=== PATIENT | female | born 1980 | race Hispanic/Latino ===

== ENCOUNTER 2019-04-24 19:26 | Emergency (ER) | payer SELFPAY ==
[2019-04-24 19:38] VITALS: BP 107/69; PULSE 93; RESP 18; TEMP 38.7; O2SAT 100
[2019-04-24 19:48] VITALS: TEMP 38.3
[2019-04-24] MEDS: IBUPROFEN 400 MG TABLET 800 MG PO (19:48)
[2019-04-24 19:49] VITALS: TEMP 38.3
[2019-04-24] MEDS: ACETAMINOPHEN 325 MG TABLET 975 MG PO (19:49)
--- NOTE | 2019-04-24 20:24 | ED.FEVER ---
HPI - Fever General Chief Complaint: Fever Stated Complaint: Throat/ear pain Time Seen by Provider: 04/24/19 20:09 Source: patient Mode of arrival: ambulatory Limitations: language barrier History of Present Illness HPI Narrative: Patient is a 39-year-old female who presents with sore throat ongoing for last 2 days. No one else is sick at home. No difficulty breathing or swallowing. Her strep is positive. She is currently afebrile in the ED. She does be [place] but also some Macedonian. MD complaint: fever Related Data Previous Rx's Medication Instructions Recorded amoxicillin 500 mg PO BID 7 Days #14 cap 04/24/19 Allergies Allergy/AdvReac Type Severity Reaction Status Date / Time No Known Drug Allergies Allergy Verified 04/24/19 19:44 Review of Systems Review of Systems ROS Unobtainable: All systems reviewed & are unremarkable except as noted in HPI and below Constitutional Reports body ache(s) and Reports fever(s) Eyes Denies change in vision, Denies eye discharge, Denies irritation and Denies loss of vision ENT Ears, Nose, Mouth, and Throat: Reports as per HPI and Reports sore throat Cardiovascular Denies chest pain Respiratory Denies cough Gastrointestinal Gastrointestinal: Denies nausea and Denies vomiting Musculoskeletal Denies back pain, Denies muscle weakness, Denies numbness and Denies tingling Integumentary/Breasts Denies pruritus, Denies erythema, Denies rash and Denies wounds Neurologic Denies loss of vision, Denies numbness and Denies tingling PFSH Medical History Patient denies significant medical history (Acute) Social History Smoking Status: Former smoker Social History Smoking Status: Former smoker Exam Initial Vital Signs Initial Vital Signs: Vital Signs Temperature 101.7 F H 04/24/19 19:38 Pulse Rate 93 H 04/24/19 19:38 Respiratory Rate 18 04/24/19 19:38 Blood Pressure 107/69 04/24/19 19:38 Pulse Oximetry 100 04/24/19 19:38 GENERAL: Well-appearing, well-nourished and in no acute distress. HEENT: Head atraumatic,EOMI, pupils reactive, face symmetric, moist mucous membranes, know many he will sign PHARYNX: Mild erythema no exudate no uvular swelling or deviation managing secretions CARDIOVASCULAR: Regular rate and rhythm without murmurs, rubs or gallops. RESPIRATORY: Breath sounds equal bilaterally, no wheezes rales or rhonchi. ABDOMEN: Soft, nontender. Normoactive bowel sounds all 4 quadrants. No guarding or rebound. EXTREMITIES: Normal range of motion, no clubbing or edema. Neurovascularly intact NEUROLOGICAL: Alert and oriented x4.Normal gait and speech. SKIN: Warm, dry, no laceration, no petechiae, no rashes or lesions. Course Orders Ordered: ED Orders 04/24/19 20:27 Urine Microscopic Stat Discontinued Medications Acetaminophen (Tylenol) 975 mg PO NOW ONE Stop: 04/24/19 19:46 Last Admin: 04/24/19 19:49 Dose: 975 mg Amoxicillin ( Trimox 250mg Prepack) 1 bottle MISC SEEINSTR ONE Stop: 04/24/19 20:34 Last Admin: 04/24/19 20:42 Dose: 1 bottle Ibuprofen (Advil) 800 mg PO NOW ONE Stop: 04/24/19 19:46 Last Admin: 04/24/19 19:48 Dose: 800 mg Vital Signs - 8 hr 04/24/19 19:38 04/24/19 19:48 04/24/19 19:49 Temperature 101.7 F H 101 F H 101 F H Pulse Rate 93 H Respiratory Rate 18 Blood Pressure 107/69 Pulse Oximetry 100 04/24/19 20:48 Temperature 97.9 F Pulse Rate 85 Respiratory Rate 18 Blood Pressure 126/87 Pulse Oximetry 97 MDM - Fever Lab Data Attestation: I reviewed the patient's lab results. Lab Results 04/24/19 Range/Units 20:27 Urine RBC 0-1/hpf (0-5/HPF) Urine WBC 0-1/hpf (0-5/HPF) Ur Squamous Epith Cells 0-1 /hpf (0-5/HPF) Urine Bacteria None seen (None) Ur Culture Indicated? Cult not indicated Point of Care Testing Rapid Strep A Positive Urine Dip Bedside Urine Glucose Negative Bedside Urine Bilirubin - Negative Bedside Urine Ketone - Negative Urine Specific [place] 1.015 Bedside Urine Occult Blood +/- Bedside Urine pH 7.0 Bedside Urine Protein +/- 15 Bedside Urine Urobilinogen +/- 1mg Bedside Urine Nitrite - Negative Bedside Urine Leukocytes - Negative Esterase Discharge Plan Departure Patient Disposition: Home Clinical Impression: Strep pharyngitis Discharge Date/Time: 04/24/19 20:50 Interventions: ED Discharge Assessment Last Done: 04/24/19 20:48 Instructions: Strep Throat Activity Restrictions/Additional Instructions: *You have been diagnosed with strep throat *What to do: Increase fluids as tolerated *Continue to take medications as directed Amoxicllin 500 mg twice a day (1x2x7) *Follow up with your primary care provider in 2-3 days *Return to ER if you should have inability to swallow, decreased oral intake, difficulty breathing, not able to manage secretions or any new, worsening or concerning symptoms Prescriptions: New amoxicillin 500 mg capsule 500 mg PO BID 7 Days Qty: 14 RF: 0
[2019-04-24 20:29] LABS: Bacteria Urine None Seen
[2019-04-24 20:36] LABS: Culture Indicated Urine Cult Not Indicated; RBC Urine 0-1/HPF (0-5/HPF); Squamous Epithelial Cell Urine 0-1 /HPF (0-5/HPF); WBC Urine 0-1/HPF (0-5/HPF)
[2019-04-24] MEDS: AMOXICILLIN 250 MG PREPACK 1 BOTTLE MISC (20:42)
[2019-04-24 20:48] VITALS: BP 126/87; PULSE 85; RESP 18; TEMP 36.6; O2SAT 97
== END 2019-04-24 20:50 | disposition home or self-care (01) ==
LOC: ED 20:51
PROVIDERS: Emergency Provider Emergency Medicine
DX: J02.0 Streptococcal pharyngitis (principal)
CPT/HCPCS: 81003; 81015; 87880; 99283

== ENCOUNTER 2020-05-01 20:55 | Emergency (ER) | payer SELFPAY ==
[2020-05-01 21:03] VITALS: BP 105/51; PULSE 78; RESP 15; TEMP 36.6; O2SAT 99; BMI 29.3
[2020-05-01 22:09] LABS: RBC Urine None Seen (0-5/HPF)
[2020-05-01 22:16] LABS: Bacteria Urine Moderate (10-30); Culture Indicated Urine Specimen Cultured; Squamous Epithelial Cell Urine 0-1 /HPF (0-5/HPF); WBC Urine 5-10/HPF (0-5/HPF)
--- NOTE | 2020-05-02 00:52 | ED_ITS ---
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 Presents with greater than 1 month of multiple arthralgias. She describes pain in the joints of both hands knees shoulders elbows, occasionally with swelling and she has noticed intermittent increased lower extremity edema. She has not noticed any rashes, fevers, chills, cough. No vomiting or diarrhea. She notes a slight weight increase recently and describes headaches at night time. He does not have any night sweats and is not complaining of significant adenopathy. No significant family history for arthralgias. She is followed by Sanju Sharp and apparently has been seen by tiana with blood work and x-rays done with follow-up appointment scheduled for May 06 to review all of these. She comes to the emergency department this evening because the arthralgia pain is bothering her too much to continue. Related Data Previous Rx's Medication Instructions Recorded naproxen 500 mg PO BID #60 tab 05/02/20 prednisone 40 mg PO DAILY #8 tab 05/02/20 Allergies Allergy/AdvReac Type Severity Reaction Status Date / Time No Known Drug Allergies Allergy Verified 05/01/20 21:03 Review of Systems Review of Systems Narrative: Remainder of review of systems including constitutional, ENT, cardiovascular, respiratory, GI, , musculoskeletal, skin, neurologic and psychiatric systems reviewed and are unremarkable except as noted in HPI. Patient History Medical History Patient denies significant medical history (Acute) Social History Smoking Status: Former smoker Smoking Status: Former smoker alcohol intake frequency: holidays/special occasions only Substance Use Type: does not use Exam Narrative Exam Narrative: General: Alert appropriate in no acute distress Respiratory: Able to speak in full sentences, no obvious respiratory distress Skin: No obvious rashes, warm and dry Neurologic: Grossly intact no obvious asymmetries or abnormalities Psych, appropriate insight and affect, cooperative Extremities: No obvious active synovitis, rashes or edema of extremities. She has full range of motion of all joints in the hands wrists elbows shoulders hips knees and ankles bilaterally Initial Vital Signs Initial Vital Signs: Vital Signs Temperature 97.9 F 05/01/20 21:03 Pulse Rate 78 05/01/20 21:03 Respiratory Rate 15 05/01/20 21:03 Blood Pressure 105/51 L 05/01/20 21:03 Pulse Oximetry 99 05/01/20 21:03 Course Orders Ordered: ED Orders 05/01/20 21:30 Urine Culture Stat Urine Microscopic Stat Discontinued Medications Oxycodone/Acetaminophen (Percocet 5/325) 1 tab PO NOW ONE Stop: 05/02/20 01:15 Last Admin: 05/02/20 01:28 Dose: 1 tab Documented by: BENIGNO Oxycodone/Acetaminophen (Endocet 5/325 Prepack) 1 bottle MISC SEEINSTR ONE Stop: 05/02/20 01:15 Last Admin: 05/02/20 01:29 Dose: 1 bottle Documented by: BENIGNO Prednisone (Deltasone) 60 mg PO NOW ONE Stop: 05/02/20 01:15 Last Admin: 05/02/20 01:29 Dose: 60 mg Documented by: BENIGNO Vital Signs Vital signs: Vital Signs - 8 hr 05/01/20 21:03 05/02/20 01:37 Temperature 97.9 F Pulse Rate 78 61 Respiratory Rate 15 17 Blood Pressure 105/51 L 110/68 Pulse Oximetry 99 100 MDM - Extremity (Nontraumatic) Lab Data Labs: Lab Results 05/01/20 Range/Units 21:30 Urine RBC None seen (0-5/HPF) Urine WBC 5-10/hpf H (0-5/HPF) Ur Squamous Epith Cells 0-1 /hpf (0-5/HPF) Urine Bacteria Moderate (10-30) H (None) Ur Culture Indicated? Specimen cultured Point of Care Testing Test Results Negative Urine Dip Bedside Urine Glucose Negative Bedside Urine Bilirubin - Negative Bedside Urine Ketone - Negative Urine Specific [place] 1.010 Bedside Urine Occult Blood - Negative Bedside Urine pH 6.0 Bedside Urine Protein - Negative Bedside Urine Urobilinogen - Negative Bedside Urine Nitrite - Negative Bedside Urine Leukocytes +++ 500 Esterase MDM Narrative Medical decision making narrative: as patient has already initiated with sounds like a fairly thorough workup through her primary care physician will opt to simply treat symptoms of an inflammatory arthritis for pain at this time. Encouraged her to follow-up regarding labs and x-rays that have already been done. Will place her on a brief course of prednisone and follow that with david Post for inflammatory control. She is given a prepack of Percocet to use for severe pain if needed. Patient is safe for home discharge Discharge Plan Departure Patient Disposition: Home Clinical Impression: Arthritis Discharge Date/Time: 05/02/20 01:45 Instructions: DI for Rheumatoid Arthritis -- Child, DI for Arthritis Activity Restrictions/Additional Instructions: keep your appointment with your doctor on may 06 take prednisone 40mg a day for 4 more days to help with severe joint pain take 1 percoset every 8 hours for severe pain take 1 naproxen morning and night to help control the pain overall. You can continue this one until your doctor has other suggestions for you Good luck! acuda a gray zee con gray m?dico el 3 de kevin tome 40 mg de prednisona al d?a estelita 4 d?as m?s para ayudar con el dolor art icular intenso tome 1 percoset cada 8 horas para el dolor intenso tome 1 naproxeno ma?nisha y noche para ayudar a controlar el dolor en general. Puede continuar con jana hasta que gray m?dico tenga otras sugerencias para usted. ?[place] suerte! Prescriptions: New prednisone 20 mg tablet 40 mg PO DAILY Qty: 8 RF: 0 naproxen 500 mg tablet 500 mg PO BID Qty: 60 RF: 0
[2020-05-02] MEDS: OXYCODONE/ACETAMINOPHEN 5/325 TABLET 1 TAB PO (01:28)
[2020-05-02] MEDS: predniSONE 20 MG TABLET 60 MG PO (01:29)
[2020-05-02] MEDS: OXYCODONE/APAP 5/325 PREPACK 1 BOTTLE MISC (01:29)
[2020-05-02 01:37] VITALS: BP 110/68; PULSE 61; RESP 17; O2SAT 100
== END 2020-05-02 01:45 | disposition home or self-care (01) ==
PROVIDERS: Emergency Provider Emergency Medicine
DX: M19.90 Unspecified osteoarthritis, unspecified site (principal)
CPT/HCPCS: 81003; 81015; 81025; 87086; 99283

== ENCOUNTER 2020-05-08 20:55 | Emergency (ER) | payer SELFPAY ==
[2020-05-08] VITALS (8 sets, daily range): BP systolic 98–135; BP diastolic 54–82; PULSE 71–87; RESP 16; TEMP 36.9; O2SAT 97–100; BMI 31.6
--- NOTE | 2020-05-08 22:00 | ED.ABDPAIN ---
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 She did take some Pepto-Bismol and the diarrhea has resolved. There is still some minor nausea but she is not interested in additional medication. Her main reason for reporting to the emergency room this evening is concern that these symptoms represent coronavirus and she is requesting testing she does not have any known [place] exposures. No fevers, no cough.. Related Data Previous Rx's Medication Instructions Recorded naproxen 500 mg PO BID #60 tab 05/02/20 prednisone 40 mg PO DAILY #8 tab 05/02/20 Allergies Allergy/AdvReac Type Severity Reaction Status Date / Time No Known Drug Allergies Allergy Verified 05/01/20 21:03 Review of Systems Review of Systems Narrative: Remainder of review of systems including constitutional, ENT, cardiovascular, respiratory, GI, , musculoskeletal, skin, neurologic and psychiatric systems reviewed and are unremarkable except as noted in HPI. Patient History Medical History Patient denies significant medical history (Acute) Social History Smoking Status: Former smoker Smoking Status: Former smoker alcohol intake frequency: holidays/special occasions only Substance Use Type: does not use Exam Narrative Exam Narrative: General: Alert appropriate in no acute distress Respiratory: Able to speak in full sentences, no obvious respiratory distress Chest: Lungs are clear to auscultation, no rhonchi, rales Cardiac: Regular rate and rhythm, no murmurs Skin: No obvious rashes, warm and dry Neurologic: Grossly intact no obvious asymmetries or abnormalities Psych, appropriate insight and affect, cooperative Initial Vital Signs Initial Vital Signs: Vital Signs Temperature 98.5 F 05/08/20 21:07 Pulse Rate 85 05/08/20 21:07 Respiratory Rate 16 05/08/20 21:07 Blood Pressure 106/68 05/08/20 21:07 Pulse Oximetry 97 05/08/20 21:07 Course Orders Ordered: ED Orders 05/08/20 21:49 Complete Blood Count AUTO DIFF Stat Comprehensive Metabolic Panel Stat Lipase Stat Sodium Chloride (Normal Saline 0.9%) 1,000 mls @ 1,000 mls/hr IV BOLUS ONE Stop: 05/08/20 23:02 Last Admin: 05/08/20 22:31 Dose: 1,000 mls/hr Documented by: REBEKAH Discontinued Medications Ondansetron HCl (Zofran) 4 mg IV NOW ONE Stop: 05/08/20 22:04 Last Admin: 05/08/20 22:30 Dose: 4 mg Documented by: REBEKAH Vital Signs Vital signs: Vital Signs - 8 hr 05/08/20 21:07 05/08/20 21:23 05/08/20 21:24 Temperature 98.5 F Pulse Rate 85 72 72 Respiratory Rate 16 Blood Pressure 106/68 109/54 L Pulse Oximetry 97 100 97 05/08/20 21:30 05/08/20 21:58 05/08/20 22:00 Temperature Pulse Rate 72 74 87 Respiratory Rate Blood Pressure 110/61 98/60 135/82 Pulse Oximetry 100 100 99 05/08/20 22:30 05/08/20 22:31 Temperature Pulse Rate 71 75 Respiratory Rate Blood Pressure 99/54 L Pulse Oximetry 99 98 MDM - Abdominal Pain Medical Records Attestation: I reviewed the patient's medical records. Lab Data Result diagrams: 05/08/20 21:49 05/08/20 21:49 Labs: Lab Results 05/08/20 05/08/20 Range/Units 21:49 21:49 WBC 9.9 (4.5-11.0) X10^3/uL RBC 4.09 (4.0-5.2) X10^6/uL Hgb 12.1 (12.0-16.0) g/dL Hct 36.8 (36-46) % MCV 90.2 (80-100) fL MCH 29.6 (26-34) PG MCHC 32.8 (30-36) % RDW 13.6 (11.6-14.8) % Plt Count 225 (150-400) X10^3/uL Neut % (Auto) 64.7 (50-75) % Lymph % (Auto) 26.8 (25-40) % [place] % (Auto) 6.1 (3-14) % Eos % (Auto) 2.0 (2-4) % Baso % (Auto) 0.4 (0-2) % Neut # (Auto) 6400 (1990-0081) /uL Lymph # (Auto) 2700 (3816-2978) /uL [place] # (Auto) 600 (0-900) /uL Eos # (Auto) 200 (0-450) /uL Baso # (Auto) 0 (0-100) /uL Sodium 137 (137-145) mmol/L Potassium 3.8 (3.4-5.1) mmol/L Chloride 102 (98-107) mmol/L Carbon Dioxide 27 (22-32) mmol/L BUN 15 (7-17) mg/dL Creatinine 0.70 (0.52-1.04) mg/dL Estimated GFR > 60.0 (>60) mL/min BUN/Creatinine Ratio 21.4 (6-22) Glucose 95 (70-100) mg/dL Calcium 9.4 (8.4-10.2) mg/dL Total Bilirubin 0.5 (0.2-1.3) mg/dL AST 19 (14-36) IU/L ALT 21 (<35) IU/L Alkaline Phosphatase 56 (38-126) U/L Total Protein 7.2 (6.3-8.2) g/dL Albumin 4.2 (3.5-5.0) g/dL Globulin 3.0 (1.7-4.1) g/dL Albumin/Globulin Ratio 1.4 (1.0-2.8) Lipase 214 (23-300) U/L Point of care testing: Point of Care Testing Test Results Negative Urine Dip Bedside Urine Glucose Negative Bedside Urine Bilirubin - Negative Bedside Urine Ketone - Negative Urine Specific [place] 1.010 Bedside Urine Occult Blood - Negative Bedside Urine pH 6.0 Bedside Urine Protein - Negative Bedside Urine Urobilinogen - Negative Bedside Urine Nitrite - Negative Bedside Urine Leukocytes - Negative Esterase MDM Narrative Medical decision making narrative: Minor GI distress today with no significant fevers and no significant exposures. She is concerned with coronavirus. Testing is done. Safe for home discharge Discharge Plan Departure Patient Disposition: Home Clinical Impression: Nausea vomiting and diarrhea Instructions: Diarrhea, Nausea and Vomiting-Adult Activity Restrictions/Additional Instructions: You will receive a call with the results of your coronavirus test I hope you feel better Recibir? ness llamada con los resultados de gray prueba de coronavirus. Espero que se sienta mejor Prescriptions: No Action prednisone 20 mg tablet 40 mg PO DAILY Qty: 8 RF: 0 naproxen 500 mg tablet 500 mg PO BID Qty: 60 RF: 0
[2020-05-08 22:05] LABS: Add Manual Diff / Slide Review NO; Basophils Absolute Auto 0 /uL (0-100); Basophils Percent Auto 0.4 % (0-2); Eosinophils Absolute Auto 200 /uL (0-450); Hematocrit 36.8 % (36-46); Hemoglobin 12.1 g/dL (12.0-16.0); Lymphocytes Absolute Auto 2700 /uL (1100-4500); Lymphocytes Percent Auto 26.8 % (25-40); Mean Corpuscular HGB Conc 32.8 % (30-36); Mean Corpuscular Hemoglobin 29.6 PG (26-34); Mean Corpuscular Volume 90.2 fL (80-100); Monocytes Absolute Auto 600 /uL (0-900); Monocytes Percent Auto 6.1 % (3-14); Neutrophils Absolute Auto 6400 /uL (1500-7000); Neutrophils Percent Auto 64.7 % (50-75); Platelet Count 225 X10^3/uL (150-400); Red Blood Cell Count 4.09 X10^6/uL (4.0-5.2); Red Cell Distribution Width 13.6 % (11.6-14.8); White Blood Cell Count 9.9 X10^3/uL (4.5-11.0)
[2020-05-08 22:11] LABS: Alanine Aminotransferase 21 IU/L (<35); Albumin 4.2 g/dL (3.5-5.0); Albumin Globulin Ratio 1.4 (1.0-2.8); Alkaline Phosphatase 56 U/L (38-126); Aspartate Aminotransferase 19 IU/L (14-36); BUN Creatinine Ratio 21.4 (6-22); Bilirubin Total 0.5 mg/dL (0.2-1.3); Blood Urea Nitrogen 15 mg/dL (7-17); Calcium 9.4 mg/dL (8.4-10.2); Carbon Dioxide 27 mmol/L (22-32); Chloride 102 mmol/L (98-107); Estimated Glomerular Filt Rate > 60.0 mL/min (>60); Glucose 95 mg/dL (70-100); HEMOLYSIS < 15 (0-50); Lipase 214 U/L (23-300); Potassium 3.8 mmol/L (3.4-5.1); Sodium 137 mmol/L (137-145); Total Protein 7.2 g/dL (6.3-8.2)
[2020-05-08] MEDS: ONDANSETRON 4 MG/2 ML INJ IV (22:30)
[2020-05-08] MEDS: SODIUM CHLORIDE 0.9% 1,000 ML 1000 ML IV (22:31)
[2020-05-11 15:36] LABS: COVID19 Sendout Not Detected (Not Detected)
== END 2020-05-08 22:52 | disposition home or self-care (01) ==
PROVIDERS: Emergency Provider Emergency Medicine
DX: R11.2 Nausea with vomiting, unspecified (principal); R19.7 Diarrhea, unspecified
CPT/HCPCS: 36415; 80053; 81003; 81025; 83690; 85025; 87635; 99283; 99284; J2405

== ENCOUNTER 2020-11-01 18:36 | Emergency (ER) | payer MEDICAID, SELFPAY ==
[2020-11-01 19:14] VITALS: BP 99/54; PULSE 84; RESP 18; TEMP 36.9; O2SAT 97; BMI 28.4
--- NOTE | 2020-11-01 19:25 | DI.RAD.S_ITS ---
PROCEDURE: XR WRIST RT MIN 3V INDICATIONS: Wrist lump TECHNIQUE: 4 views of the wrist were acquired. COMPARISON: None. FINDINGS: Bones: No fractures or dislocations. No suspicious bony lesions. Scaphoid view: Negative Soft tissues: No suspicious soft tissue calcifications. IMPRESSION: No acute fracture. No osseous lesion. If symptoms and/or clinical suspicion for pathology persist, further assessment with repeat, or advanced imaging (e.g., CT, MRI, or bone scan) may be helpful for further assessment. Dictated by: Lakia Elizabeth M.D. on 11/01/2020 at 19:59 Approved by: Lakia Elizabeth M.D. on 11/01/2020 at 20:00
[2020-11-01 21:42] VITALS: BP 115/66; PULSE 62; RESP 17; O2SAT 100
[2020-11-01] MEDS: LIDO 1%/SOD BICARB 8.4% (10ML) 10 ML SYRINGE INJ (21:42)
--- NOTE | 2020-11-02 08:08 | ED.UPPEXIN ---
HPI - Extremity Injury (Upper) General Chief Complaint: Extremity Injury, Upper Stated Complaint: RIGHT WRIST CYST HURTS Time Seen by Provider: 11/01/20 18:46 Source: patient Mode of arrival: Ambulatory Limitations: language barrier History of Present Illness HPI narrative: 40-year-old female nonsmoker with noncontributory medical history presents with a few days of increasing pain and swelling on the volar aspect of her right wrist. 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 He denies any obvious injury, she did not fall and has no history of the same. She denies any numbness, tingling or weakness. She has had no fever or chills. MD complaint: injury to: right Onset (ago): day(s) Other injuries: none Handedness: right Place: home Severity: mild Relieving factors: rest Exacerbating factors: movement of extremity Associated symptoms: denies other symptoms Related Data Previous Rx's Medication Instructions Recorded naproxen 500 mg PO BID #60 tab 05/02/20 prednisone 40 mg PO DAILY #8 tab 05/02/20 Allergies Allergy/AdvReac Type Severity Reaction Status Date / Time No Known Drug Allergies Allergy Verified 11/01/20 19:13 Review of Systems Constitutional Constitutional: Denies chills, Denies fatigue, Denies fever(s), Denies frequent falls, Denies lethargy and Denies weakness Eyes Eyes: Denies change in vision, Denies eye discharge, Denies irritation and Denies loss of vision ENT Ears, Nose, Mouth, and Throat: Denies change in voice, Denies dizziness, Denies neck pain, Denies sore throat and Denies throat swelling Cardiovascular Cardiovascular: Denies chest pain, Denies irregular heart rhythm, Denies lightheadedness, Denies palpitations, Denies dyspnea, Denies dyspnea on exertion and Denies orthopnea Respiratory Respiratory: Denies cough, Denies dyspnea, Denies dyspnea on exertion and Denies wheezing Gastrointestinal Gastrointestinal: Denies abdominal pain, Denies change in bowel habits, Denies diarrhea, Denies nausea and Denies vomiting Musculoskeletal Musculoskeletal: Reports arthralgias, Reports joint swelling, Denies neck pain and Denies numbness Integumentary/Breasts Skin/Breast: Denies pruritus, Denies erythema, Denies rash and Denies wounds Neurologic Neurologic: Denies behavioral changes, Denies confusion, Denies dizziness, Denies frequent falls, Denies loss of vision, Denies numbness and Denies weakness Psychiatric Psychiatric: Denies anxiety, Denies behavioral changes, Denies confusion, Denies depression, Denies homicidal ideation and Denies suicidal ideation Endocrine Endocrine: Denies fatigue, Denies flushing and Denies palpitations Hematologic/Lymphatic Hematologic/Lymphatic: Denies easy bruising Allergic/Immunologic Allergic/Immunologic: Denies urticaria, Denies throat swelling and Denies wheezing Patient History Medical History Patient denies significant medical history Social History Smoking Status: Former smoker Smoking Status: Former smoker alcohol intake frequency: holidays/special occasions only Substance Use Type: does not use Exam Narrative Exam Narrative: GEN: AOx3 and in mild distress EYES: Pupils are equal, round, and reactive to light and accommodation. Extraoccular muscles are intact bilaterally. There is no subconjunctival hemorrhage or exudate. CHEST: Lungs are clear to auscultation bilaterally and free of wheezes, rales, or rhonchi. Heart rate is regular rhythm, there are no murmurs, clicks, rubs, or gallops. There is no chest wall tenderness. ABD: Abdomen is soft and nontender. There is no guarding or rebound. Bowel sounds are normal in all 4 quadrants. There is no mass or organomegaly. EXT: 2x2cm tender, freely moveable mass, mild fluctuance on dorsum of left wrist, consistent with ganglion cyst. No erythema, induration or red streaks. Otherwise, full painless ROM of all extremities with no loss of sensation or strength. SKIN: Warm, pink, and dry. No erythema or rash Initial Vital Signs Initial Vital Signs: Vital Signs Temperature 98.5 F 11/01/20 19:14 Pulse Rate 84 11/01/20 19:14 Respiratory Rate 18 11/01/20 19:14 Blood Pressure 99/54 L 11/01/20 19:14 Pulse Oximetry 97 11/01/20 19:14 Procedures Abscess I/D I&D #1: Site: upper extremity Side (if applicable): right Local Anesthetic: lidocaine 1% and with bicarb Amount of anesthesia used (mL): 3 Technique: needle aspiration Amount of fluid expressed (mL): 5 (clear, gelatinous highly viscous drainage) Irrigation: No Course Orders Ordered: Discontinued Medications Lidocaine/Sodium Bicarbonate (Lido 1%/Sod Bicarb 8.4% (10ml) 10 Ml Syringe) 10 ml INJ NOW ONE Stop: 11/01/20 21:38 Last Admin: 11/01/20 21:42 Dose: 10 ml Documented by: ANDIE MDM - Extremity Injury (Upper) Imaging Data Extremity x-ray #1: Radiologist's Impression: [address] [id number] ReportSigned Patient: Eryn OteroMR#: [id number]: [id number]:[id number]/Sex: 40 / FDate of Service: 11/01/20Loc: EDAccession Number: [id number] Procedure: XR wrist RT min 3V Ordering Provider: Bi King D.O. PROCEDURE: XR WRIST RT MIN 3V INDICATIONS: Wrist lump TECHNIQUE: 4 views of the wrist were acquired. COMPARISON: None. FINDINGS: Bones: No fractures or dislocations. No suspicious bony lesions. Scaphoid view: Negative Soft tissues: No suspicious soft tissue calcifications. IMPRESSION: No acute fracture. No osseous lesion. If symptoms and/or clinical suspicion for pathology persist, further assessment with repeat, or advanced imaging (e.g., CT, MRI, or bone scan) may be helpful for further assessment. Dictated by: Lakia Elizabeth M.D. on 11/01/2020 at 19:59 Approved by: Lakia Elizabeth M.D. on 11/01/2020 at 20:00 Discharge Plan Departure Patient Disposition: Home Clinical Impression: Ganglion cyst of dorsum of right wrist Instructions: DI Ganglion Cyst Activity Restrictions/Additional Instructions: *You have been diagnosed with [ganglion cyst right wrist, negative x-ray] *What to do: *Take medications as directed: Tylenol or Motrin for pain *Follow up with your primary care provider in 2-3 days, call for an appointment. Let them know you were seen in the Emergency Department and that we ask that you be seen in follow up *Return to ER if you should have any new, worsening or concerning symptoms Prescriptions: No Action prednisone 20 mg tablet 40 mg PO DAILY Qty: 8 RF: 0 naproxen 500 mg tablet 500 mg PO BID Qty: 60 RF: 0 Stand Alone Forms: Work Release Note
== END 2020-11-01 21:59 | disposition home or self-care (01) ==
PROVIDERS: Emergency Provider Emergency Medicine
DX: M67.431 Ganglion, right wrist (principal)
CPT/HCPCS: 10060; 73110; 99281; 99283

== ENCOUNTER 2020-11-29 19:20 | Emergency (ER) | payer MEDICAID, SELFPAY ==
[2020-11-29 19:20] VITALS: BP 107/71; PULSE 64; RESP 18; TEMP 36.9; O2SAT 100
--- NOTE | 2020-11-29 20:07 | PC.NURSE ---
Pt is talking on the phone, clearly, no respiratory distress assessed. Breathing even, unlabored, sats 100% on room air.
--- NOTE | 2020-11-29 20:17 | DI.RAD.S_ITS ---
PROCEDURE: XR CHEST 1V INDICATIONS: covid +, sore throat, mild chest discomfort TECHNIQUE: One view of the chest was acquired. COMPARISON: None. FINDINGS: Surgical changes and devices: None. Lungs and pleura: Lungs are clear. No pleural effusions or pneumothorax. Mediastinum: Mediastinal contours appear normal. Heart size is normal. Bones and chest wall: No suspicious bony lesions. Overlying soft tissues appear unremarkable. IMPRESSION: No acute cardiopulmonary disease. Dictated by: Tiffani Nation M.D. on 11/29/2020 at 20:50 Approved by: Tiffani Nation M.D. on 11/29/2020 at 20:50
[2020-11-29 23:12] VITALS: BP 110/56; PULSE 62; RESP 16; TEMP 36.8; O2SAT 100
--- NOTE | 2020-11-29 23:29 | ED.SOB ---
HPI - SOB/Dyspnea General Chief Complaint: Shortness of Breath/Dyspnea Stated Complaint: Covid +, SOB, sick Time Seen by Provider: 11/29/20 20:58 Source: patient Mode of arrival: Ambulatory Limitations: no limitations and language barrier History of Present Illness HPI Narrative: This is a 40-year-old female who comes to the emergency department with complaint of 2 days of headache, body aches, chest discomfort and abdominal discomfort. Patient has had fever, she has had nausea. No active vomiting. No diarrhea. She has not had any swelling in her extremities. No rashes or skin changes. She denies any other symptoms. She denies any other medical problems. She has tried Tylenol and ibuprofen. She was tested today and tested positive. Related Data Previous Rx's Medication Instructions Recorded naproxen 500 mg PO BID #60 tab 05/02/20 prednisone 40 mg PO DAILY #8 tab 05/02/20 Allergies Allergy/AdvReac Type Severity Reaction Status Date / Time No Known Drug Allergies Allergy Verified 11/01/20 19:13 Review of Systems Review of Systems ROS Unobtainable: All systems reviewed & are unremarkable except as noted in HPI and below Patient History Medical History Patient denies significant medical history Social History Smoking Status: Former smoker Smoking Status: Former smoker alcohol intake frequency: holidays/special occasions only Substance Use Type: does not use Exam Narrative Exam Narrative: GEN: well nourished, well appearing female, alert and oriented x 3, patient appears to be in mild distress. HEENT: Atraumatic, pupils are equal round reactive to light, extraocular movements are intact, nares are clear, TMs are clear with no fluid, there is no conjunctival pallor. HEART: Regular rate and rhythm without murmur, clicks, rubs. No carotid bruits, pulses are equal in upper and lower extremities LUNGS:Lungs clear to auscultation, no wheezes, rales, crackles, chest moves symmetrically ABD:bowel sounds normal, soft, non-tender, no guarding, rebound, rigidity, no masses noted, no hepatosplenomegaly :No CVA tenderness MSCL: Non-tender, no muscle atrophy, muscles strength 5/5 upper and lower extremities, full range of motion, normal gait NEURO:CN 2-12 intact, sensation normal SKIN: Rash, erythema or other skin changes noted. Initial Vital Signs Initial Vital Signs: Vital Signs Temperature 98.5 F 11/29/20 19:20 Pulse Rate 64 11/29/20 19:20 Respiratory Rate 18 11/29/20 19:20 Blood Pressure 107/71 11/29/20 19:20 Pulse Oximetry 100 11/29/20 19:20 Course Orders Ordered: ED Orders 11/29/20 20:17 XR chest 1V Stat Vital Signs Vital signs: Vital Signs - 8 hr 11/29/20 23:12 Temperature 98.2 F Pulse Rate 62 Respiratory Rate 16 Blood Pressure 110/56 L Pulse Oximetry 100 MDM - SOB/Dyspnea Imaging Data Chest x-ray: Radiologist's Impression: Eryn Otero 40 F [address] [id number] ReportSigned Patient: Eryn OteroMR#: [id number]: 1980Acct:[id number]/Sex: 40 / FDate of Service: 11/29/20Loc: EDAccession Number: [id number] Procedure: XR chest 1V Ordering Provider: Barbara Hernandez D.O. PROCEDURE: XR CHEST 1V INDICATIONS: covid +, sore throat, mild chest discomfort TECHNIQUE: One view of the chest was acquired. COMPARISON: None. FINDINGS: Surgical changes and devices: None. Lungs and pleura: Lungs are clear. No pleural effusions or pneumothorax. Mediastinum: Mediastinal contours appear normal. Heart size is normal. Bones and chest wall: No suspicious bony lesions. Overlying soft tissues appear unremarkable. IMPRESSION: No acute cardiopulmonary disease. Dictated by: Tiffani Nation M.D. on 11/29/2020 at 20:50 Approved by: Tiffani Nation M.D. on 11/29/2020 at 20:50 [facility] Narrative Medical decision making narrative: This is a 40-year-old female [place] Islander-speaking primarily who comes to the emergency department with symptoms of COVID. She tested positive today. Her chest x-ray is negative, her vital signs here have all been appropriate. She does not have any other high risk medical history. We did attempt to use the language line but it was not working. Patient does not have any high risk criteria. Did discuss and print off a picture of a pulse oximeter so she knows to check her oxygen levels and to return if less than 94%. We also discussed high risk symptoms. Discharge Plan Departure Patient Disposition: Home Clinical Impression: COVID-19 virus infection Instructions: DI for COVID-19 (Suspected or Confirmed ) Activity Restrictions/Additional Instructions: Follow up for recheck if you are worsening. Buy a pulse oximeter and check your home oxygen level. If below 94% regularly return to ER for recheck. You may take tylenol and/or ibuprofen for pain and fever. Return to the ER for worsening symptoms, passing out, new chest pain, shortness of breath, persistent vomiting, low oxygen levels, new swelling in your extremities or other new or concerning symptoms. Prescriptions: No Action prednisone 20 mg tablet 40 mg PO DAILY Qty: 8 RF: 0 naproxen 500 mg tablet 500 mg PO BID Qty: 60 RF: 0
== END 2020-11-30 00:17 | disposition home or self-care (01) ==
PROVIDERS: Emergency Provider Emergency Medicine
DX: U07.1 COVID-19 (principal); R07.9 Chest pain, unspecified; R50.9 Fever, unspecified; R11.0 Nausea; J02.9 Acute pharyngitis, unspecified
CPT/HCPCS: 71045; 99283

== ENCOUNTER 2021-03-10 14:01 | Emergency (ER) | payer OTHER, MEDICAID, SELFPAY ==
[2021-03-10 14:24] VITALS: BP 97/74; PULSE 62; RESP 16; O2SAT 100; BMI 28.7
--- NOTE | 2021-03-10 15:08 | DI.RAD.S_ITS ---
PROCEDURE: XR WRIST RT MIN 3V INDICATIONS: mass TECHNIQUE: 3 views of the wrist were acquired. COMPARISON: [facility], CR, XR WRIST RT MIN 3V, 11/01/2020, 19:39. FINDINGS: Bones: No fractures or dislocations. No suspicious bony lesions. There is ulnar negative variance. There is [id number] degenerative joint disease involving the radiocarpal joint, triscaphe joint and the 1st carpometacarpal joint. Soft tissues: No suspicious soft tissue calcifications. A soft tissue density is seen in the volar aspect of the wrist adjacent to the radial styloid. IMPRESSION: 1. A soft tissue density is seen in the volar aspect of the wrist adjacent to the radial styloid. Recommend nonurgent MRI with and without contrast for follow-up evaluation. 2. Degenerative joint disease. Dictated by: Donna Smith M.D. on 03/10/2021 at 16:33 Approved by: Donna Smith M.D. on 03/10/2021 at 16:35
[2021-03-10] MEDS: KETOROLAC 30 MG/ML VIAL IM (15:35)
--- NOTE | 2021-03-10 16:22 | ED.EXTPRO ---
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 She states this is in the same spot. She has had these issues on and off for 3 years. 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 She took ibuprofen for pain yesterday. She has not had anything today. She states that she is new to her insurance and does not have a primary care provider yet. She states that last time she was here was drained. She wonders why the lump keeps coming back after it it is drained. The patient is left-hand dominant. Interview conducted using language line. Related Data Previous Rx's Medication Instructions Recorded naproxen 500 mg PO BID #60 tab 05/02/20 prednisone 40 mg PO DAILY #8 tab 05/02/20 ketorolac 10 mg PO TID PRN #14 tab 03/10/21 Allergies Allergy/AdvReac Type Severity Reaction Status Date / Time No Known Drug Allergies Allergy Verified 03/10/21 14:24 Review of Systems <WILLIAM Miller- - Last Filed: 03/10/21 18:04> Review of Systems Narrative: GENERAL: Denies chills, fatigue, malaise, fever, sweats. HEENT: Denies sinus pain, ear pain, sore throat, difficulty swallowing, dizziness. RESPIRATORY: Denies dyspnea, cough, wheezing, hemoptysis, sputum. CARDIOVASCULAR: Denies chest pain, palpitations, orthopnea, edema, GASTROINTESTINAL: Denies nausea, vomiting, abdominal pain, diarrhea, constipation, melena. : Denies dysuria, frequency, incontinence, hematuria, urinary retention. MUSCULOSKELETAL: See HPI SKIN: Denies rash, skin lesions, or other NEUROLOGIC: Denies weakness, headache, numbness, change in speech, confusion, seizures, incoordination. PSYCHIATRIC: No concerning psychosocial issues. 12 point review of systems is negative except for those stated above Patient History <PAPA Miller - Last Filed: 03/10/21 18:04> Medical History (Updated 03/10/21 @ 17:50 by PAPA Miller) Patient denies significant medical history Social History Smoking Status: Former smoker Smoking Status: Former smoker alcohol intake frequency: holidays/special occasions only Substance Use Type: does not use Exam <PAPA Miller - Last Filed: 03/10/21 18:04> Narrative Exam Narrative: GENERAL: This is a well-nourished, well-developed patient, in mild distress. HEAD: Atraumatic. Normocephalic. No temporal or scalp tenderness. EYES: Pupils equal round and reactive. Extraocular motions intact. No scleral icterus. No injection or drainage. ENT: Nose without bleeding, purulent drainage or septal hematoma. Wearing a mask. Airway patent. NECK: Trachea midline. No JVD or lymphadenopathy. Supple, nontender, no meningeal signs. CARDIOVASCULAR: Regular rate and rhythm RESPIRATORY: No cough. No increased respiratory effort. No accessory muscle use. EXTREMITIES: A 2 cm nodule noted on volar aspect of right wrist, radial aspect, able to flex extend right wrist. 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 No extending erythema or drainage noted. BACK: Nontender without deformity or crepitance. No flank tenderness. NEURO: AOx3. SKIN: No rash or erythema on visible skin. see extremity exam Initial Vital Signs Initial Vital Signs: Vital Signs Pulse Rate 62 03/10/21 14:24 Respiratory Rate 16 03/10/21 14:24 Blood Pressure 97/74 03/10/21 14:24 Pulse Oximetry 100 03/10/21 14:24 <Dulce Alba DO - Last Filed: 03/14/21 07:40> Initial Vital Signs Initial Vital Signs: Vital Signs Pulse Rate 62 03/10/21 14:24 Respiratory Rate 16 03/10/21 14:24 Blood Pressure 97/74 03/10/21 14:24 Pulse Oximetry 100 03/10/21 14:24 Procedures <PAPA Miller - Last Filed: 03/10/21 18:04> Orthopedic Splinting/Casting Injury #1: Side: right Upper Extremity Injury Location: wrist Upper Extremity Immobilizer: Devante wrap Scores <PAPA Miller - Last Filed: 03/10/21 18:04> GCS [place] coma scale eye opening: Spontaneous [place] coma scale verbal response: Orientated [place] coma scale motor response: Obey commands [place] coma scale total score: 15 Course <PAPA Miller - Last Filed: 03/10/21 18:04> Orders Ordered: Discontinued Medications Ketorolac Tromethamine (Ketorolac 30 Mg/Ml Vial) 30 mg IM NOW ONE Stop: 03/10/21 15:09 Last Admin: 03/10/21 15:35 Dose: 30 mg Documented by: WILLIAM Vital Signs Vital signs: Vital Signs - 8 hr 03/10/21 14:24 Pulse Rate 62 Respiratory Rate 16 Blood Pressure 97/74 Pulse Oximetry 100 <Dulce Alba DO - Last Filed: 03/14/21 07:40> Orders Ordered: Discontinued Medications Ketorolac Tromethamine (Ketorolac 30 Mg/Ml Vial) 30 mg IM NOW ONE Stop: 03/10/21 15:09 Last Admin: 03/10/21 15:35 Dose: 30 mg Documented by: WILLIAM Vital Signs Vital signs: Vital Signs - 8 hr 03/10/21 14:24 Pulse Rate 62 Respiratory Rate 16 Blood Pressure 97/74 Pulse Oximetry 100 MDM - Extremity (Nontraumatic) <PAPA Miller - Last Filed: 03/10/21 18:04> Imaging Data Extremity x-ray #1: Radiologist's Impression: [address] [place] [id number] ReportSigned Patient: Eryn OteroMR#: [id number]: 1980Acct:[id number]/Sex: 41 / FDate of Service: 03/10/21Loc: EDAccession Number: [id number] Procedure: XR wrist RT min 3V Ordering Provider: Barbara Valiente PROCEDURE: XR WRIST RT MIN 3V INDICATIONS: mass TECHNIQUE: 3 views of the wrist were acquired. COMPARISON: [facility], , XR WRIST RT MIN 3V, 11/01/2020, 19:39. FINDINGS: Bones: No fractures or dislocations. No suspicious bony lesions. There is ulnar negative variance. There is [id number] degenerative joint disease involving the radiocarpal joint, triscaphe joint and the 1st carpometacarpal joint. Soft tissues: No suspicious soft tissue calcifications. A soft tissue density is seen in the volar aspect of the wrist adjacent to the radial styloid. IMPRESSION: 1. A soft tissue density is seen in the volar aspect of the wrist adjacent to the radial styloid. Recommend nonurgent MRI with and without contrast for follow-up evaluation. 2. Degenerative joint disease. Dictated by: Donna Smith M.D. on 03/10/2021 at 16:33 Approved by: Donna Smith M.D. on 03/10/2021 at 16:35 MDM Narrative Medical decision making narrative: The patient is a 41-year-old female who presents with a chief complaint of a possible cyst on the volar aspect of her wrist. She states she has had multiple masses in the same area that of continuously been drained. X-ray shows soft tissue density. Exam shows no evidence of abscess, she appears well and nontoxic. She feels much improved after does Toradol so prescription was given with strict instructions to not take it with any other NSAIDs. Devante wrap was applied for comfort. Spoke with Dr. Alba who states that the patient would benefit from orthopedic follow-up, it is a ganglionic cyst so that she can have it removed properly. I discussed this at length with the patient, did use the language line several times during her stay. Discussed come back to ER for acute concerns. Patient has no questions or concerns upon discharge. Discharge Plan Departure Patient Disposition: Home Clinical Impression: Mass of wrist Qualifiers: Laterality: right Qualified Code(s): R22.31 - Localized swelling, mass and lump, right upper limb Instructions: How To Perform RICE (Rest, Ice, Compress, Elevate), DI for Wrist Pain Activity Restrictions/Additional Instructions: Thank you for trusting us with your care today As I discussed, your x-ray shows no acute fracture. This does not rule out a soft tissue injury such as a ligament or tendon injury. It is important that you follow up with primary care provider, especially if worsening or no improvement. There can be fractures that did not show up on initial x-ray. I sent a prescription of ketorolac or Toradol to [facility]. Please remember to not take this with ibuprofen or any other NSAIDs. Please come back to the emergency department for any acute concerns. Please follow-up with primary care provider. I have also given you contact information to [facility]. Prescriptions: New ketorolac 10 mg tablet 10 mg PO TID PRN (Reason: pain) Qty: 14 RF: 0 No Action prednisone 20 mg tablet 40 mg PO DAILY Qty: 8 RF: 0 naproxen 500 mg tablet 500 mg PO BID Qty: 60 RF: 0 Referrals: [facility] [Provider Group] [facility] [Outside] Stand Alone Forms: Work Release Note <Dulce Alba DO - Last Filed: 03/14/21 07:40> Cosign ED Attending Sholaature Attestation: I was immediately available in the department for consultation. Documentation has been reviewed. I agree with assessment and plan.
[2021-03-10 18:07] VITALS: BP 98/58; PULSE 66; RESP 16; O2SAT 100
== END 2021-03-10 18:08 | disposition home or self-care (01) ==
PROVIDERS: Emergency Provider Nurse Practitioner Family
DX: R22.31 Localized swelling, mass and lump, right upper limb (principal)
CPT/HCPCS: 73110; 96372; 99283; 99284; J1885

== ENCOUNTER 2021-04-07 13:41 | Emergency (ER) | payer OTHER, MEDICAID, SELFPAY ==
[2021-04-07 14:01] VITALS: BP 91/56; PULSE 78; RESP 14; TEMP 36.7; O2SAT 98
--- NOTE | 2021-04-07 14:37 | ED_ITS ---
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 She presents with nausea vomiting diarrhea and abdominal pain ongoing since yesterday. Both she and family member have similar symptoms in her here in the emergency department. Unclear what they ate. She feels like she has headache she has little dizzy and lightheaded blood pressure is noted to be low. She has had nausea at least 3-5 times and diarrhea about the same. Nonbloody. She has not passed out. She is also concerned about a right Traore cyst on her wrist which she has been seen and evaluated here before. She has not yet followed up with a primary care provider. Related Data Previous Rx's Medication Instructions Recorded naproxen 500 mg tablet 500 mg PO BID #60 tab 05/02/20 prednisone 20 mg tablet 40 mg PO DAILY #8 tab 05/02/20 ketorolac 10 mg tablet 10 mg PO TID PRN #14 tab 03/10/21 ondansetron 4 mg disintegrating 4 mg PO Q6H PRN #10 tab 04/07/21 tablet Allergies Allergy/AdvReac Type Severity Reaction Status Date / Time No Known Drug Allergies Allergy Verified 03/10/21 14:24 Review of Systems Review of Systems Narrative: GENERAL: Denies chills, fatigue, malaise, fever, sweats, travel HEENT: Denies sinus pain, ear pain, sore throat, difficulty swallowing, neck pain RESPIRATORY: Denies dyspnea, cough, wheezing, hemoptysis, sputum. CARDIOVASCULAR: Denies chest pain, palpitations, orthopnea, edema GASTROINTESTINAL: See HPI : Denies dysuria, frequency, incontinence, hematuria, urinary retention, flank pain. MUSCULOSKELETAL: Denies weakness, joint pain, or bony pain SKIN: No rash, no erythema, no pruritus NEUROLOGIC: Denies weakness, dizziness, headache, numbness, change in speech, confusion PSYCHIATRIC: No concerning psychosocial issues. 12 point review of systems is negative except for those stated above and HPI Patient History Medical History (Updated 04/07/21 @ 16:07 by Dulce Alba DO) Patient denies significant medical history Social History Smoking Status: Former smoker Smoking Status: Former smoker alcohol intake frequency: holidays/special occasions only Substance Use Type: does not use Exam Initial Vital Signs Initial Vital Signs: Vital Signs Temperature 98.0 F 04/07/21 14:01 Pulse Rate 78 04/07/21 14:01 Respiratory Rate 14 04/07/21 14:01 Blood Pressure 91/56 L 04/07/21 14:01 Pulse Oximetry 98 04/07/21 14:01 GENERAL: [Well-appearing, well-nourished] and in [no acute] distress. HEENT: Head atraumatic,EOMI, pupils reactive, face symmetric, [moist] mucous membranes CARDIOVASCULAR: Regular rate and rhythm without murmurs, rubs or gallops. RESPIRATORY: Breath sounds equal bilaterally, no wheezes rales or rhonchi. ABDOMEN: Soft, mild diffuse tenderness no guarding or rebound EXTREMITIES: Normal range of motion, no clubbing or edema. Neurovascularly intact NEUROLOGICAL: Alert and oriented x4.Normal gait and speech. SKIN: Warm, dry, no laceration, no petechiae, no rashes or lesions. Course Orders Ordered: ED Orders 04/07/21 15:06 Complete Blood Count AUTO DIFF Stat Comprehensive Metabolic Panel Stat Lipase Stat Discontinued Medications Sodium Chloride (Normal Saline 0.9%) 1,000 mls @ 1,000 mls/hr IV CONT ARUNA Last Infusion: 04/07/21 16:22 Dose: 0 mls/hr Documented by: Admin: 04/07/21 15:03 Dose: 1,000 mls/hr Documented by: TRAVON Ketorolac Tromethamine (Ketorolac 30 Mg/Ml Vial) 30 mg IV NOW ONE Stop: 04/07/21 14:38 Last Admin: 04/07/21 15:03 Dose: 30 mg Documented by: TRAVON Ondansetron HCl (Ondansetron 4 Mg/2 Ml Inj) 4 mg IV NOW ONE Stop: 04/07/21 14:38 Last Admin: 04/07/21 15:03 Dose: 4 mg Documented by: TRAVON Vital Signs Vital signs: Vital Signs - 8 hr 04/07/21 14:01 04/07/21 17:19 Temperature 98.0 F Pulse Rate 78 84 Respiratory Rate 14 16 Blood Pressure 91/56 L 90/48 L Pulse Oximetry 98 99 MDM - Nausea/Vomiting/Diarrhea Lab Data Result diagrams: 04/07/21 15:06 04/07/21 15:06 Labs: Lab Results 04/07/21 04/07/21 Range/Units 15:06 15:06 WBC 6.4 (4.5-11.0) X10^3/uL RBC 3.80 L (4.0-5.2) X10^6/uL Hgb 11.7 L (12.0-16.0) g/dL Hct 34.4 L (36-46) % MCV 90.5 (80-100) fL MCH 30.7 (26-34) PG MCHC 33.9 (30-36) % RDW 12.8 (11.6-14.8) % Plt Count 163 (150-400) X10^3/uL Neut % (Auto) 82.4 H (50-75) % Lymph % (Auto) 10.9 L (25-40) % [place] % (Auto) 5.6 (3-14) % Eos % (Auto) 0.9 L (2-4) % Baso % (Auto) 0.2 (0-2) % Neut # (Auto) 5200 (6545-5849) /uL Lymph # (Auto) 700 L (2475-2974) /uL [place] # (Auto) 400 (0-900) /uL Eos # (Auto) 100 (0-450) /uL Baso # (Auto) 0 (0-100) /uL Sodium 136 L (137-145) mmol/L Potassium 3.3 L (3.4-5.1) mmol/L Chloride 103 (98-107) mmol/L Carbon Dioxide 27 (22-32) mmol/L BUN 15 (7-17) mg/dL Creatinine 0.57 (0.52-1.04) mg/dL Estimated GFR > 60.0 (>60) mL/min BUN/Creatinine Ratio 26.3 H (6-22) Glucose 88 (70-100) mg/dL Calcium 8.6 (8.4-10.2) mg/dL Total Bilirubin 0.8 (0.2-1.3) mg/dL AST 31 (14-36) IU/L ALT 35 H (<35) IU/L Alkaline Phosphatase 44 (38-126) U/L Total Protein 7.1 (6.3-8.2) g/dL Albumin 4.1 (3.5-5.0) g/dL Globulin 3.0 (1.7-4.1) g/dL Albumin/Globulin Ratio 1.4 (1.0-2.8) Lipase 193 (23-300) U/L Point of Care Testing Test Results Negative Urine Dip Bedside Urine Glucose Negative Bedside Urine Bilirubin - Negative Bedside Urine Ketone - Negative Urine Specific [place] 1.015 Bedside Urine Occult Blood - Negative Bedside Urine pH 6 Bedside Urine Protein - Negative Bedside Urine Urobilinogen - Negative Bedside Urine Nitrite - Negative Bedside Urine Leukocytes + 70 Esterase MDM Narrative Medical decision making narrative: With gastroenteritis similar to another family member. The potassium is noted to be barely low at 3.3. She is ambulatory in the emergency department for urine sample and is overall feeling significantly better. Blood pressure is noted to be with low 80-90. Her blood pressure does seem to run low based on previous visits usually in the mid to high 90s and low 100s. She is asymptomatic she is tolerating oral fluids. I used official court interpreter line to give her discharge instructions. She is also concerned about the Traore cyst on the right which she does need to follow up have explained that nothing to do in the emergency department for this particular problem. Discharge Plan Departure Patient Disposition: Home Clinical Impression: Gastroenteritis Instructions: DI for Viral Gastroenteritis -- Adult Activity Restrictions/Additional Instructions: *You have been diagnosed with gastroenteritis *What to do: Increase fluid intake with Gatorade or Gatorade like substance. Your symptoms should improve over the next few days *Continue to take medications as directed--> [facility] Zofran 4 mg every 8 hours if needed for nausea or vomiting *Follow up with your primary care provider in 2-3 days *Return to ER if you should have increasing vomiting, diarrhea, dizziness, passing or any new, worsening or concerning symptoms Prescriptions: New ondansetron 4 mg tablet,disintegrating 4 mg PO Q6H PRN (Reason: nausea and vomiting) Qty: 10 RF: 0 No Action ketorolac 10 mg tablet 10 mg PO TID PRN (Reason: pain) Qty: 14 RF: 0 prednisone 20 mg tablet 40 mg PO DAILY Qty: 8 RF: 0 naproxen 500 mg tablet 500 mg PO BID Qty: 60 RF: 0
[2021-04-07] MEDS: ONDANSETRON 4 MG/2 ML INJ IV (15:03)
[2021-04-07] MEDS: SODIUM CHLORIDE 0.9% 1,000 ML 1000 ML IV (15:03)
[2021-04-07] MEDS: KETOROLAC 30 MG/ML VIAL IV (15:03)
[2021-04-07 15:14] LABS: Add Manual Diff / Slide Review NO; Basophils Absolute Auto 0 /uL (0-100); Basophils Percent Auto 0.2 % (0-2); Eosinophils Absolute Auto 100 /uL (0-450); Eosinophils Percent Auto 0.9 % (2-4); Hematocrit 34.4 % (36-46); Hemoglobin 11.7 g/dL (12.0-16.0); Lymphocytes Absolute Auto 700 /uL (1100-4500); Lymphocytes Percent Auto 10.9 % (25-40); Mean Corpuscular HGB Conc 33.9 % (30-36); Mean Corpuscular Hemoglobin 30.7 PG (26-34); Mean Corpuscular Volume 90.5 fL (80-100); Monocytes Absolute Auto 400 /uL (0-900); Monocytes Percent Auto 5.6 % (3-14); Neutrophils Absolute Auto 5200 /uL (1500-7000); Neutrophils Percent Auto 82.4 % (50-75); Platelet Count 163 X10^3/uL (150-400); Red Cell Distribution Width 12.8 % (11.6-14.8); White Blood Cell Count 6.4 X10^3/uL (4.5-11.0)
[2021-04-07 15:22] LABS: Alanine Aminotransferase 35 IU/L (<35); Albumin 4.1 g/dL (3.5-5.0); Albumin Globulin Ratio 1.4 (1.0-2.8); Alkaline Phosphatase 44 U/L (38-126); Aspartate Aminotransferase 31 IU/L (14-36); BUN Creatinine Ratio 26.3 (6-22); Bilirubin Total 0.8 mg/dL (0.2-1.3); Blood Urea Nitrogen 15 mg/dL (7-17); Calcium 8.6 mg/dL (8.4-10.2); Carbon Dioxide 27 mmol/L (22-32); Chloride 103 mmol/L (98-107); Estimated Glomerular Filt Rate > 60.0 mL/min (>60); Glucose 88 mg/dL (70-100); HEMOLYSIS 26 (0-50); Lipase 193 U/L (23-300); Potassium 3.3 mmol/L (3.4-5.1); Sodium 136 mmol/L (137-145); Total Protein 7.1 g/dL (6.3-8.2)
[2021-04-07 17:19] VITALS: BP 90/48; PULSE 84; RESP 16; O2SAT 99
== END 2021-04-07 17:21 | disposition home or self-care (01) ==
PROVIDERS: Emergency Provider Emergency Medicine
DX: K52.9 Noninfective gastroenteritis and colitis, unspecified (principal); R10.9 Unspecified abdominal pain; R51.9 Headache, unspecified; E87.6 Hypokalemia
CPT/HCPCS: 36415; 80053; 81003; 81025; 83690; 85025; 96361; 96374; 96375; 99284; J1885; J2405